=== PATIENT | male | born 1955 | race Caucasian/White ===

== ENCOUNTER → 2017-08-01 | Outpatient (CLI) | payer BC ==
[~2017-08-01] MED LIST: ACET500 PO; ALBU90OI INH; ALLER-FEX180 MG PO; ANTARA30 MG PO; ASPI325 PO; Augmentin 875-1 EACH PO; CEFD300; EZET10 PO; FEXPSEER PO; LIDO2L TOP; NIAC500ER PO; Norco 5-325 Ta1 EACH PO; OXYC5 PO
== END | disposition home or self-care (01) ==
LOC: LAB 11:47 → LAB SHORT 11:47
DX: N39.0 Urinary tract infection, site not specified (principal)
CPT/HCPCS: 87077; 87086; 87186

== ENCOUNTER 2017-10-25 10:45 | Day surgery (SDC) | payer BC ==
[~2017-10-25] VITALS: Ht 177.8 cm; Wt 163.9 kg
== END 2017-10-25 11:55 | disposition home or self-care (01) ==
LOC: ORSCSDS 10:45
PROVIDERS: Anesthesiology
PROC: 3E0R33Z Introduction of Anti-inflammatory into Spinal Canal, Percutaneous Approach (ICD-10-PCS; principal; 2017-10-25 12:00)
DX: M51.16 Intervertebral disc disorders with radiculopathy, lumbar region (principal); M43.16 Spondylolisthesis, lumbar region; G47.33 Obstructive sleep apnea (adult) (pediatric); E66.01 Morbid (severe) obesity due to excess calories; Z68.43 Body mass index [BMI] 50.0-59.9, adult; Z79.82 Long term (current) use of aspirin; Z79.899 Other long term (current) drug therapy
CPT/HCPCS: J1040; J2001

== ENCOUNTER → 2018-07-01 | Outpatient (CLI) | payer BC | LOC: LAB 11:00 → LAB SHORT 11:00 | DX: R30.0 Dysuria (principal) | CPT/HCPCS: 87077; 87086; 87186 ==

== ENCOUNTER → 2022-05-16 | Outpatient (CLI) | payer MEDICARE, OTHER | END | disposition home or self-care (01) | LOC: LAB 15:21 → LAB SHORT 15:21 | DX: E78.49 Other hyperlipidemia (principal); N39.0 Urinary tract infection, site not specified | CPT/HCPCS: 87086 ==

== ENCOUNTER → 2023-09-12 | Outpatient (CLI) | payer MEDICARE, OTHER | LOC: LAB SHORT 17:01 → LAB 17:01 | DX: N39.0 Urinary tract infection, site not specified (principal) | CPT/HCPCS: 87077; 87086; 87186 ==